=== PATIENT | male | born 1945 | race Caucasian/White ===

== ENCOUNTER 2018-05-15 01:54 | Inpatient (IN) | payer OTHER, BC ==
[2018-05-15 02:03] VITALS: BMI 25.0
--- NOTE | 2018-05-15 02:20 | PDOC ---
History of Present Illness - General Chief Complaint: Chest Pain Stated Complaint: CHEST PAIN Time Seen by Provider: 05/15/18 02:17 - History of Present Illness Initial Comments: 05/15/18 02:47 The patient is a 73 year old male with a PMH of Prostate CA who presents to the ED c/o acute onset of chest pain. Patient states the pain is pressure like, central and initially radiated down his L arm. Denies any associated palpitations, shortness of breath, lightheadness, nausea, diaphroesis. H/o negative cardiac stress testing one year previous. NKDA Surgical: Prostate resection PMD: Dr. Dontae Loaiza Past History - Past Medical History Allergies/Adverse Reactions: Allergies Allergy/AdvReac Type Severity Reaction Status Date / Time No Known Allergies Allergy Verified 05/15/18 02:03 Home Medications: Ambulatory Orders NK [No Known Home Medication] 07/30/14 Disorders: Yes (intermittent hematuria) - Suicide/Smoking/Psychosocial Hx Smoking History: Never smoked Have you smoked in the past 12 months: No Information on smoking cessation initiated: No Hx Alcohol Use: No Drug/Substance Use Hx: No Substance Use Type: None Review of Systems - Review of Systems Constitutional: No: Chills, Fever HEENTM: No: Recent change in vision Respiratory: No: Shortness of Breath, Wheezing Cardiac (ROS): Yes: Chest Pain. No: Lightheadedness, Palpitations, Syncope ABD/GI: No: Constipated, Diarrhea, Nausea, Vomiting *Physical Exam - Vital Signs Last Vital Signs Temp Pulse Resp BP Pulse Ox 98.5 F 92 H 19 133/92 98 05/15/18 01:54 05/15/18 01:54 05/15/18 01:54 05/15/18 01:54 05/15/18 01:54 - Physical Exam General Appearance: Yes: Nourished, Appropriately Dressed HEENT: positive: Normal Voice, Hearing Grossly Normal Neck: positive: Trachea midline, Supple Respiratory/Chest: positive: Lungs Clear, Normal Breath Sounds Cardiovascular: positive: S1, S2. negative: Edema, JVD, Murmur Vascular Pulses: Femoral (R): 2+, Femoral (L): 2+ Gastrointestinal/Abdominal: positive: Normal Bowel Sounds, Soft Extremity: positive: Normal Capillary Refill, Normal Inspection Integumentary: positive: Normal Color, Dry, Warm Neurologic: positive: Fully Oriented, Alert Moderate Sedation - Procedure Monitoring Vital Signs: Procedure Monitoring Vital Signs Temperature 98.5 F 05/15/18 01:54 Pulse Rate 92 H 05/15/18 01:54 Respiratory Rate 19 05/15/18 01:54 Blood Pressure 133/92 05/15/18 01:54 O2 Sat by Pulse Oximetry (%) 98 05/15/18 01:54 ED Treatment Course - LABORATORY CBC & Chemistry Diagram: 05/15/18 03:48 05/15/18 04:48 Medical Decision Making - Medical Decision Making 05/15/18 05:54 73 year old male with chest pain. VS unremarkable. Will r/o ACS. Also consider esophageal spasm, GERD, costochondritis, MSK. CXR shows no infiltrate/consolidation. Troponin (-) x1 EKG shows NSR, HR 80, normal intervals, no deviations, no KAROL/STD/TWI Heart Score 4 Patient requires admission for serial troponins and non-emergent cardiac evaluation 05/15/18 05:56 Case d/w JEFF Renae. Patient admitted to [facility] Tele under Dr. Neves who admits for patient's PMD, Dr. Loaiza *DC/Admit/Observation/Transfer Diagnosis at time of Disposition: Chest pain - Discharge Dispostion Condition at time of disposition: Fair - Referrals Referrals: Dontae Loaiza MD [Primary Care Provider] - - Patient Instructions - Post Discharge Activity
--- NOTE | 2018-05-15 02:31 | PDOC ---
Attending Attestation - HPI HPI: 05/15/18 04:00 The patient is a 73 year old male, with a significant past medical history of prostate cancer, who presents to the emergency department with, chest pain. Patient describes his chest pain as pressure-like, onsetting at 8AM, and initially radiating down left arm but, no longer. He denies any recent palpitations or shortness of breath. He denies any recent fevers, chills, headache or dizziness. He denies any recent nausea, vomit, diarrhea or constipation. He denies any recent dysuria, frequency, urgency or hematuria. Allergies: NKDA Primary Care Physician: Dr. Loaiza - Physicial Exam PE: 05/15/18 04:01 Agree with resident exam. <Alma Oseguera - Last Filed: 05/15/18 04:00> - Resident Resident Name: Payton Marinelli - ED Attending Attestation I have performed the following: I have examined & evaluated the patient, The case was reviewed & discussed with the resident, I agree w/resident's findings & plan - Medical Decision Making 05/15/18 04:21 74-year-old male with intermittent chest pain Patient's last stress test was approximately 10 years ago Chest x-ray shows no acute infiltrate We will hold for observation and serial enzymes <Felicity Dawn - Last Filed: 05/15/18 04:21> Attestations - Attestations 05/15/18 04:01 Documentation prepared by Alma Oseguera, acting as medical cash poster for Felicity Dawn DO. <Alma Oseguera - Last Filed: 05/15/18 04:00>
[2018-05-15 03:57] LABS: BASO % 0.4 % (0-2.0); EOS % 1.1 % (0-4.5); HEMATOCRIT 44.2 % (35.4-49); HEMOGLOBIN 15.6 GM/dL (11.7-16.9); LYMPH % 13.1 % (8-40); MCH 33.4 pg (25.7-33.7); MCHC 35.3 g/dl (32.0-35.9); MEAN CELL VOLUME 94.7 fl (80-96); MEAN PLT VOLUME 8.9 fl (7.5-11.1); MONO % 10.4 % (3.8-10.2); PLATELET COUNT 313 K/MM3 (134-434); RBC 4.67 M/mm3 (4.00-5.60); WHITE BLOOD COUNT 8.2 K/mm3 (4.0-10.0)
[2018-05-15 05:24] LABS: ALBUMIN 3.5 g/dl (3.4-5.0); ALK PHOS 73 U/L (45-117); ANION GAP 4 MMOL/L (8-16); BILIRUBIN,TOTAL 0.4 mg/dL (0.2-1); BLOOD UREA NITROGEN 18 mg/dL (7-18); CALCIUM 8.5 mg/dL (8.5-10.1); CHLORIDE 111 mmol/L (98-107); CO2 25 mmol/L (21-32); CREATININE 0.9 mg/dL (0.55-1.3); GLUCOSE,RANDOM 105 mg/dL (74-106); POTASSIUM 4.3 mmol/L (3.5-5.1); SGOT/AST 24 U/L (15-37); SGPT/ALT 36 U/L (13-61); SODIUM 141 mmol/L (136-145); TOT PROT 6.6 g/dl (6.4-8.2)
--- NOTE | 2018-05-15 11:06 | HP ---
Admitting History and Physical - Primary Care Physician PCP: Dontae Loaiza S - Admission Chief Complaint: Chest pain History of Present Illness: Patient is a 73 y/o male with past medical history of prostate cancer. Patient presented to ER with complaints of L sided chest pain 3/10 for 1 week. Yesterday patient states chest pain worsened to 5/10, and radiated to patient neck, L shoulder, and mid chest accompanied with numbness to bilateral fingers. Troponin neg x 1, repeat pending. EKG NSR. Currently on examination patient states L sided chest pain is minimal 1/10. 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: Alzheimer's, CVA, Dementia, Migraine, Multiple Sclerosis, Peripheral Neuropathy, Parkinson's, Seizure, Syncope, TIA, Vertigo, Other Cardiovascular: No: AFIB, Aneurysm, Aortic Insufficiency, Aortic Stenosis, CAD, CHF, Deep Vein Thrombosis, HTN, Hyperlipdemia, [place], Mitral Insufficiency, Mitral Stenosis, Murmur, Pulmonary Hypertension, Other Pulmonary: No: Asthma, Bronchitis, Cancer, COPD, O2 Dependent, Pneumonia, Previously Intubated, Pulmonary Embolus, Pulmonary Fibrosis, Sleep Apnea, Other Gastrointestinal: No: Ascites, Cancer, Constipation, Crohn's Disease, Diverticulitis, Diverticulosis, Esophageal Varices, Gastritis, GERD, GI Bleed, Hemorrhoids, Hiatal Hernia, Inflamatory Bowel Disease, Irritable Bowel Disease, Pancreatitis, Peptic Ulcer Disease, Ulcerative Colitis, Other Hepatobiliary: No: Cirrhosis, Cholelithiasis, Cholecystitis, Choledocholithiasis , Hepatitis A, Hepatitis B, Hepatitis C, Other Renal/: Yes: Hematuria Heme/Onc: No: Anemia, B12 Deficiency, Bleeding Disorder, Cancer, Current Chemotherapy, Current Radiation Therapy, Hemochromatosis, Hypercoaguable State, Myeloproliferative Synd, Sickle Cell Disease, Sickle Cell Trait, Thrombocytopenia, Other Infectious Disease: No: AIDS, C-Diff, Herpes Zoster, HIV, MRSA, STD's, Tuberculosis, VREF, Other Psych: No: Addictions, Anxiety, Bipolar, Depression, Panic, Psychosis, Schizophrenia, Other Musculoskeletal: No: Bursitis, Chronic low back pain, Hemiparesis, Hemiplegia, Osteoarthritis, Paraplegia, Other Rheumatology: No: Fibromyalgia, Gout, Lupus, Rheumatoid Arthritis, Sarcoidosis, Vasculitis, Other Endocrine: No: Doddridge's Disease, Onward's Disease, Diabetes Insipidus, Diabetes Mellitus, Hyperparathyroidism, Hyperthyroidism, Hypothyroidism, Osteopenia, SIADH, Other Dermatology: No: Basal Cell, Cellulitis, Eczema, Melanoma, Psoriasis, Squamous Cell, Other - Smoking History Smoking history: Never smoked Have you smoked in the past 12 months: No - Alcohol/Substance Use Hx Alcohol Use: No - Social History Usual Living Arrangement: Yes: Alone ADL: Independent Home Medications - Allergies Allergies/Adverse Reactions: Allergies Allergy/AdvReac Type Severity Reaction Status Date / Time No Known Allergies Allergy Verified 05/15/18 02:03 - Home Medications Home Medications: Ambulatory Orders NK [No Known Home Medication] 07/30/14 Review of Systems - Review of Systems Constitutional: reports: No Symptoms Eyes: reports: No Symptoms HENT: reports: Nasal Congestion Neck: reports: Other (neck pain) Cardiovascular: reports: Chest Pain Respiratory: reports: Cough (non productive) Gastrointestinal: reports: No Symptoms Genitourinary: reports: No Symptoms Breasts: reports: No Symptoms Reported Musculoskeletal: reports: No Symptoms Integumentary: reports: No Symptoms Neurological: reports: No Symptoms Endocrine: reports: No Symptoms Hematology/Lymphatic: reports: No Symptoms Psychiatric: reports: No Symptoms Physical Examination Vital Signs: Vital Signs Temperature 97.7 F 05/15/18 06:57 Pulse Rate 85 05/15/18 06:57 Respiratory Rate 19 05/15/18 06:57 Blood Pressure 131/78 05/15/18 06:57 O2 Sat by Pulse Oximetry (%) 97 05/15/18 06:57 Constitutional: Yes: Well Nourished, No Distress, Calm Eyes: Yes: Conjunctiva Clear HENT: Yes: Atraumatic Neck: Yes: Supple Cardiovascular: Yes: Regular Rate and Rhythm Respiratory: Yes: Regular, CTA Bilaterally Gastrointestinal: Yes: Normal Bowel Sounds, Soft Musculoskeletal: Yes: WNL Extremities: Yes: WNL Edema: No Neurological: Yes: Alert, Oriented Psychiatric: Yes: Alert Labs: CBC, BMP 05/15/18 03:48 05/15/18 04:48 Troponin, BNP 05/15/18 05/15/18 05/15/18 03:48 04:48 09:47 Troponin I Cancelled < 0.02 < 0.02 Imaging - Results X-ray: Report Reviewed Problem List - Problems (1) Chest pain Assessment/Plan: -tele observation -cardiology consult placed -carotid doppler US -start on asa 81 daily -pending repeat troponin -lipid panel ordered Code(s): R07.9 - CHEST PAIN, UNSPECIFIED Assessment/Plan see problem list dvt ppx
--- NOTE | 2018-05-15 12:06 | EKG ---
Test Reason : Blood Pressure : / mmHG Vent. Rate : 080 BPM Atrial Rate : 080 BPM P-R Int : 142 ms QRS Dur : 086 ms QT Int : 378 ms P-R-T Axes : 036 -03 050 degrees QTc Int : 435 ms NORMAL SINUS RHYTHM NORMAL ECG WHEN COMPARED WITH ECG OF 30-JUL-2014 13:45, NO SIGNIFICANT CHANGE WAS FOUND Confirmed by PERLA BRIGGS MD ([id number]) on 05/15/2018 12:05:49 PM Referred By: Confirmed By:PERLA BRIGGS MD
--- NOTE | 2018-05-15 16:50 | CON.CARD ---
Consult Consult Specialty:: Cardiology Referred by:: Dr. Neves/Rikki Reason for Consultation:: chest pain - History of Present Illness Chief Complaint: chest pain History of Present Illness: 73 year old man with pmh prostate Ca admitted with chest pain. Pt seen and examined in the ER in nad. Pt states that he exercises regularly almost everyday on the treadmill without limitation and no chest pain or sob. states that he has had intermittent numbness and tingling in b/l feet and fingertips and yesterday when waking up felt SS chest pain which continued through the day and night and thus he came to the ER. Once in the ER his chest pain resolved and has not recurred. Also notes possible palpitations last night but has trouble describing it. states he is feeling well and wishes to go home. denies sob, pnd, orthopnea, no lightheadedness, dizziness, syncope, or near syncope. 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, CVA, Dementia, Migraine, Multiple Sclerosis, Peripheral Neuropathy, Parkinson's, Seizure, Syncope, TIA, Vertigo, Other Cardio/Vascular: No: AFIB, Aneurysm, Aortic Insufficiency, Aortic Stenosis, CAD , CHF, Deep Vein Thrombosis, HTN, Hyperlipdemia, [place], Mitral Insufficiency, Mitral Stenosis, Murmur, Pulmonary Hypertension, Other Pulmonary: No: Asthma, Bronchitis, Cancer, COPD, O2 Dependent, Pneumonia, Previously Intubated, Pulmonary Embolus, Pulmonary Fibrosis, Sleep Apnea, Other Gastrointestinal: No: Ascites, Cancer, Constipation, Crohn's Disease, Diverticulitis, Diverticulosis, Esophageal Varices, Gastritis, GERD, GI Bleed, Hemorrhoids, Hiatal Hernia, Inflamatory Bowel Disease, Irritable Bowel Disease, Pancreatitis, Peptic Ulcer Disease, Ulcerative Colitis, Other Hepatobiliary: No: Cirrhosis, Cholelithiasis, Cholecystitis, Choledocholithiasis , Hepatitis A, Hepatitis B, Hepatitis C, Other Renal/: Yes: Hematuria Infectious Disease: No: AIDS, C-Diff, Herpes Zoster, HIV, MRSA, STD's, Tuberculosis, VREF, Other Psych: No: Addictions, Anxiety, Bipolar, Depression, Panic, Psychosis, Schizophrenia, Other Musculoskeletal: No: Bursitis, Chronic low back pain, Hemiparesis, Hemiplegia, Osteoarthritis, Paraplegia, Other Rheumatology: No: Fibromyalgia, Gout, Lupus, Rheumatoid Arthritis, Sarcoidosis, Vasculitis, Other Endocrine: No: Dario's Disease, Israel's Disease, Diabetes Insipidus, Diabetes Mellitus, Hyperparathyroidism, Hyperthyroidism, Hypothyroidism, Osteopenia, SIADH, Other Dermatology: No: Basal Cell, Cellulitis, Eczema, Melanoma, Psoriasis, Squamous Cell, Other - Alcohol/Substance Use Hx Alcohol Use: No - Smoking History Smoking history: Never smoked Have you smoked in the past 12 months: No - Social History ADL: Independent Home Medications - Allergies Allergies/Adverse Reactions: Allergies Allergy/AdvReac Type Severity Reaction Status Date / Time No Known Allergies Allergy Verified 05/15/18 02:03 - Home Medications Home Medications: Ambulatory Orders NK [No Known Home Medication] 07/30/14 Family Disease History - Family Disease History Family History: Denies Review of Systems - Review of Systems Constitutional: reports: No Symptoms Eyes: reports: No Symptoms HENT: reports: No Symptoms Neck: reports: No Symptoms Cardiovascular: reports: Chest Pain, Palpitations Respiratory: reports: No Symptoms Gastrointestinal: reports: No Symptoms Genitourinary: reports: No Symptoms Breasts: reports: No Symptoms Reported Musculoskeletal: reports: No Symptoms Integumentary: reports: No Symptoms Neurological: reports: No Symptoms Endocrine: reports: No Symptoms Hematology/Lymphatic: reports: No Symptoms Psychiatric: reports: No Symptoms Vital Signs: Vital Signs Temperature 97.7 F 05/15/18 06:57 Pulse Rate 85 05/15/18 06:57 Respiratory Rate 19 05/15/18 06:57 Blood Pressure 131/78 05/15/18 06:57 O2 Sat by Pulse Oximetry (%) 97 05/15/18 06:57 Constitutional: Yes: No Distress, Calm Eyes: Yes: Conjunctiva Clear, EOM Intact, PERRL HENT: Yes: Atraumatic, Normocephalic Neck: Yes: Supple, Trachea Midline Respiratory: Yes: Regular, CTA Bilaterally. No: Rales, Rhonchi, Wheezes Gastrointestinal: Yes: Normal Bowel Sounds, Soft. No: Distention, Tenderness Cardiovascular: Yes: Regular Rate and Rhythm. No: Bradycardia, Tachycardia, Pulse Irregular, Gallop, Rub, Varicosities JVD: No Carotid Bruit: No PMI: Non-Displaced Heart Sounds: Yes: S1, S2. No: Split S2, S3, S4, Clicks, Gallop, Rub, Bruit Murmur: No: Systolic Murmur, Diastolic Murmur Musculoskeletal: Yes: WNL Extremities: Yes: WNL Edema: No Peripheral Pulses WNL: Yes Peripheral Pulses: 2+ Left Doralis Pedis, 2+ Right Dorsalis Pedis Neurological: Yes: Alert, Oriented Psychiatric: Yes: Alert, Oriented - Other Data Labs, Other Data: CBC, BMP 05/15/18 03:48 05/15/18 04:48 Troponin, BNP 05/15/18 05/15/18 05/15/18 03:48 04:48 09:47 Troponin I Cancelled < 0.02 < 0.02 Troponin, BNP 05/15/18 05/15/18 05/15/18 03:48 04:48 09:47 Troponin I Cancelled < 0.02 < 0.02 ekg-nsr 80bpm, normal ecg Imaging - Results Chest X-ray: Report Reviewed, Image Reviewed EKG: Report Reviewed, Image Reviewed Other: Report Reviewed, Image Reviewed Assessment/Plan 73 year old man with pmh prostate Ca admitted with chest pain. Pt seen and examined in the ER in nad. Pt states that he exercises regularly almost everyday on the treadmill without limitation and no chest pain or sob. states that he has had intermittent numbness and tingling in b/l feet and fingertips and yesterday when waking up felt SS chest pain which continued through the day and night and thus he came to the ER. Once in the ER his chest pain resolved and has not recurred. Also notes possible palpitations last night but has trouble describing it. states he is feeling well and wishes to go home. denies sob, pnd, orthopnea, no lightheadedness, dizziness, syncope, or near syncope. chest pain-unlikely ACS -ekg normal -cardiac enzymes wnl -no further inpatient cardiac work up needed at this time. -pt acceptable for discharge from cardiac standpiont with outpatient follow up. THank you. please call with any additional questions.
[2018-05-15 19:00] VITALS: BP 132/82; PULSE 89; TEMP 98.1
--- NOTE | 2018-05-15 20:17 | DS ---
Physical Examination Vital Signs: Vital Signs Temperature 98.1 F 05/15/18 18:59 Pulse Rate 89 05/15/18 18:59 Respiratory Rate 18 05/15/18 18:59 Blood Pressure 132/82 05/15/18 18:59 O2 Sat by Pulse Oximetry (%) 100 05/15/18 18:59 Findings/Remarks: Patient is a 73 y/o male with history of Prostate CA. Patient presented to ER with complaints of left sided chest pain for 1 week. Yesterday patient states chest pain worsened to 5/10 and radiated up neck and left shoulder accompanied with numbness to bilateral fingers. Troponin neg x 2 and EKG is NSR. Evaluated by cardiology and says cleared for discharge and can be followed up as outpatient. Carotid US shows mild atherosclerotic heart disease with no evidence of hemodynamically significant disease. Constitutional: Yes: No Distress, Calm Eyes: Yes: Conjunctiva Clear HENT: Yes: Atraumatic Neck: Yes: Supple Cardiovascular: Yes: Regular Rate and Rhythm Respiratory: Yes: Regular, CTA Bilaterally Gastrointestinal: Yes: Normal Bowel Sounds, Soft Musculoskeletal: Yes: WNL Extremities: Yes: WNL Edema: No Neurological: Yes: Alert, Oriented Psychiatric: Yes: Alert, Oriented Labs: CBC, BMP 05/15/18 03:48 05/15/18 04:48 Troponin, BNP 05/15/18 05/15/18 05/15/18 03:48 04:48 09:47 Troponin I Cancelled < 0.02 < 0.02 Discharge Summary Reason For Visit: CHEST PAIN Current Active Problems Chest pain (Acute) Procedures: Principal: ekg, carotid arterial doppler Hospital Course: see progress notes Laboratory Tests 05/15/18 05/15/18 05/15/18 03:48 03:48 04:48 WBC 8.2 RBC 4.67 Hgb 15.6 Hct 44.2 MCV 94.7 MCH 33.4 MCHC 35.3 RDW 13.0 Plt Count 313 MPV 8.9 Absolute Neuts (auto) 6.1 Neutrophils % 75.0 Lymphocytes % 13.1 D Monocytes % 10.4 H Eosinophils % 1.1 Basophils % 0.4 Nucleated RBC % 0 Sodium Cancelled 141 Potassium Cancelled 4.3 Chloride Cancelled 111 H Carbon Dioxide Cancelled 25 Anion Gap Cancelled 4 L BUN Cancelled 18 Creatinine Cancelled 0.9 Creat Clearance w eGFR Cancelled 82.95 Random Glucose Cancelled 105 Calcium Cancelled 8.5 Total Bilirubin Cancelled 0.4 AST Cancelled 24 ALT Cancelled 36 Alkaline Phosphatase Cancelled 73 Creatine Kinase Cancelled 112 Troponin I Cancelled < 0.02 Total Protein Cancelled 6.6 Albumin Cancelled 3.5 05/15/18 09:47 WBC RBC Hgb Hct MCV MCH MCHC RDW Plt Count MPV Absolute Neuts (auto) Neutrophils % Lymphocytes % Monocytes % Eosinophils % Basophils % Nucleated RBC % Sodium Potassium Chloride Carbon Dioxide Anion Gap BUN Creatinine Creat Clearance w eGFR Random Glucose Calcium Total Bilirubin AST ALT Alkaline Phosphatase Creatine Kinase Troponin I < 0.02 Total Protein Albumin Active Medications Generic Name Dose Route Start Last Admin Trade Name Freq PRN Reason Stop Dose Admin Aspirin 81 mg 05/16/18 10:00 Ecotrin - PO DAILY LIBORIO Condition: Stable - Instructions Diet, Activity, Other Instructions: continue with current medication follow up with PMD follow up with cardiology Dr. Flores in 1 week continue with current med regimen return to ER if chest pain, SOB, severe pain Referrals: Vinh Flores MD [Staff Physician] - Disposition: HOME - Home Medications Comprehensive Discharge Medication List: Ambulatory Orders NK [No Known Home Medication] 07/30/14
[2018-05-16] MEDS ORDERED: ASPIRIN COATED 81 MG TABLET.EC PO SCH (10:00)
== END 2018-05-15 19:49 | disposition left against medical advice (07) | DRG 313 ==
LOC: JER 01:54 → JERBED 05:09 → OBSVTOIN 11:01
PROVIDERS: ADMIT Family Medicine; ATTEND Family Medicine
DX: R07.89 Other chest pain (principal); Z85.46 Personal history of malignant neoplasm of prostate
CPT/HCPCS: 36415; 71045-TC-FY; 80053; 82550; 84484; 85025; 93005; 93010; 93880-TC; 99282-25; G0378